=== PATIENT | male | born 1985 ===

== ENCOUNTER 2024-04-27 21:19 | Outpatient (REF) | payer BC, SELFPAY ==
[2024-04-27 21:12] LABS: Epithelial Cells Rare HPF (Negative); RBC 0-2 HPF (0-2); WBC 0-2 HPF (0-5)
[2024-04-27 21:13] LABS: Bacteria Negative HPF (Negative); C & S Indicated? C&S Done As Ordered; Casts Negative LPF (Negative); Crystals Negative HPF (Negative); Mucus Negative (Negative)
== END 2024-04-27 21:20 | disposition home or self-care (01) ==
LOC: LBN 21:19
PROVIDERS: Visit Provider Nurse Practitioner Family
DX: N30.00 Acute cystitis without hematuria (principal)
CPT/HCPCS: 81015; 87086